=== PATIENT | male | born 1980 | race Caucasian/White ===

== ENCOUNTER 2017-12-06 09:19 | Emergency (ER) | payer OTHER ==
[~2017-12-06] VITALS: Ht 180.3 cm; Wt 111.4 kg
[~2017-12-06 09:19] MED LIST: NORCO 325 MG-51 TAB PO; VIVLODEX5 MG PO
[2017-12-06 09:26] VITALS: TEMP 98.4
[2017-12-06 09:43] LABS: HEMATOCRIT 46.2 % (42.0-52.0); HEMOGLOBIN 15.8 g/dl (13.5-18.0); MEAN CELL VOLUME 93 fl (80.0-100.0); MEAN CORPUSCULAR HEMOGLOBIN 32 pg (27.0-31.0); MEAN CORPUSCULAR HGB CONC 34 g/dl (33.0-37.0); MEAN PLATELET VOLUME 8.9 fl (7.4-10.4); PLATELET COUNT 210 K/mm3 (130-400); RED BLOOD COUNT 4.96 M/mm3 (4.20-5.60); REDCELL DISTRIBUTION WIDTH-CV 13.4 % (11.5-14.5)
[2017-12-06 09:44] LABS: ALANINE AMINOTRANSFERASE 49 U/L (21-72); ALBUMIN 4.1 gm/dL (3.5-5.0); ALKALINE PHOSPHATASE 67 U/L (50-136); ANION GAP 8 mmol/L (7-16); AST,SGOT 43 U/L (15-37); BILIRUBIN,TOTAL 0.5 mg/dL (0.0-1.0); BLOOD UREA NITROGEN 10 mg/dL (9-20); CALCIUM 9.1 mg/dL (8.4-10.2); CARBON DIOXIDE 30 mmol/L (22-30); CHLORIDE 102 mmol/L (98-107); CREATININE, serum 0.83 mg/dL (0.66-1.25); GLUCOSE 104 mg/dL (74-106); LIPASE 101 U/L (23-300); POTASSIUM 3.7 mmol/L (3.4-5.0); SODIUM 141 mmol/L (137-145); TOTAL PROTEIN 8.1 gm/dL (6.4-8.2)
[2017-12-06 09:56] LABS: TROPONIN-I < 0.012 ng/mL (0.000-0.034)
[2017-12-06 10:34] LABS: BAND 4 % (0-10); EOSINOPHIL 1 % (0-4); LYMPHOCYTE 19 % (20.0-51.0); NEUTROPHILS 67 % (42.0-75.2); PLATELET ESTIMATE NORMAL (NORMAL)
[2017-12-06] MEDS ORDERED: CARAFATE 1GM1 G PO (16:14)
[2017-12-06] MEDS ORDERED: PROTONIX 40MG T40 MG PO (16:14)
[2017-12-06 16:40] VITALS: BP 150/93; PULSE 86
== END 2017-12-06 16:53 | disposition home or self-care (01) ==
LOC: COL.ER 09:19
PROVIDERS: Emergency Medicine
DX: K21.9 Gastro-esophageal reflux disease without esophagitis (principal); R07.89 Other chest pain; F17.210 Nicotine dependence, cigarettes, uncomplicated
CPT/HCPCS: J1170

== ENCOUNTER 2018-06-14 18:06 | Emergency (ER) | payer SELFPAY ==
[~2018-06-14] VITALS: Ht 180.3 cm; Wt 104.5 kg
[~2018-06-14 18:06] MED LIST changes: +CARAFATE 1GM1 G PO; +PROTONIX 40MG T40 MG PO
[2018-06-14 18:11] VITALS: BP 168/115; TEMP 97.4
[2018-06-14] MEDS ORDERED: FLEXERIL 1010 MG/TAB PO (20:45)
[2018-06-14] MEDS ORDERED: MOTRIN 800800 MG/TAB PO (20:45)
[2018-06-14 21:05] VITALS: PULSE 80
== END 2018-06-14 21:07 | disposition home or self-care (01) ==
LOC: COL.ER 18:06
DX: S39.012A Strain of muscle, fascia and tendon of lower back, initial encounter (principal); F17.210 Nicotine dependence, cigarettes, uncomplicated; X50.0XXA Overexertion from strenuous movement or load, initial encounter
CPT/HCPCS: J1885

== ENCOUNTER 2018-06-21 10:18 | Outpatient (RCR) | payer OTHER ==
[~2018-06-21 10:18] MED LIST changes: +FLEXERIL 1010 MG/TAB PO; +MOTRIN 800800 MG/TAB PO
[2018-09-09] MEDS ORDERED: TAMIFLU 75MG75 MG PO (12:12)
== END 2018-09-19 | disposition home or self-care (01) ==
LOC: WSOH
DX: S39.012A Strain of muscle, fascia and tendon of lower back, initial encounter (principal); X50.0XXA Overexertion from strenuous movement or load, initial encounter; Y92.59 Other trade areas as the place of occurrence of the external cause; Y99.0 Civilian activity done for income or pay; Z87.891 Personal history of nicotine dependence; Z79.1 Long term (current) use of non-steroidal anti-inflammatories (NSAID); Z79.899 Other long term (current) drug therapy

== ENCOUNTER 2018-09-09 10:10 | Emergency (ER) | payer OTHER ==
[~2018-09-09] VITALS: Ht 180.3 cm; Wt 109.1 kg
[2018-09-09 10:34] LABS: BASO % 0.4 % (0.0-2.0); EOS # 0.1 (0.0-0.7); EOS % 1.5 % (0-4.0); GRAN # 5.9 (1.4-6.5); GRAN % 64.5 % (42.2-75.2); HEMOGLOBIN 15.7 g/dl (13.5-18.0); LYMPH # 1.5 (1.2-3.4); LYMPH % 16.4 % (20.0-51.0); MEAN CELL VOLUME 93 fl (80.0-100.0); MEAN CORPUSCULAR HEMOGLOBIN 32 pg (27.0-31.0); MEAN CORPUSCULAR HGB CONC 34 g/dl (33.0-37.0); MONO # 1.5 (0.1-0.6); MONO % 16.8 % (1.7-9.3); PLATELET COUNT 184 K/mm3 (130-400); RED BLOOD COUNT 4.93 M/mm3 (4.20-5.60); REDCELL DISTRIBUTION WIDTH-CV 13.2 % (11.5-14.5)
[2018-09-09 10:44] LABS: ALBUMIN 4.5 gm/dL (3.5-5.0); BILIRUBIN,TOTAL 0.4 mg/dL (0.0-1.0); CALCIUM 9.6 mg/dL (8.4-10.2); CREATININE, serum 0.9 (0.66-1.25)
[2018-09-09 12:07] VITALS: TEMP 99.8
[2018-09-09] MEDS ORDERED: TAMIFLU 75MG75 MG PO (12:12)
[2018-09-09 13:07] VITALS: BP 109/74; PULSE 93
== END 2018-09-09 13:14 | disposition home or self-care (01) ==
LOC: COL.ER 10:10
PROVIDERS: Physician Assistant
DX: B34.9 Viral infection, unspecified (principal); R07.89 Other chest pain; R06.02 Shortness of breath; I10 Essential (primary) hypertension; F17.210 Nicotine dependence, cigarettes, uncomplicated; Z98.890 Other specified postprocedural states
CPT/HCPCS: C9113; J2405; J7030

== ENCOUNTER 2018-12-31 22:04 | Emergency (ER) | payer OTHER ==
[~2018-12-31] VITALS: Ht 180.3 cm; Wt 105.5 kg
[~2018-12-31 22:04] MED LIST changes: +TAMIFLU 75MG75 MG PO
[2018-12-31 22:13] VITALS: TEMP 97.5
[2018-12-31] MEDS ORDERED: BLOOD PRESSURE (22:23)
[2018-12-31] MEDS ORDERED: NEURONTIN100 MG/CAP PO (22:23)
[2018-12-31] MEDS ORDERED: NAPROSYN 2250 MG/TAB PO (22:59)
[2018-12-31] MEDS ORDERED: NORCO 325 MG-51 TAB PO (22:59)
[2018-12-31] MEDS ORDERED: FLEXERIL 1010 MG/TAB PO (22:59)
[2018-12-31 23:31] LABS: COLLECTION METHOD CLEAN CATCH
[2019-01-01 00:01] LABS: MUCOUS Present /lpf; PH 5 (5-8); SQUAMOUS EPITHELIAL 0-2 /hpf; URINE APPEARANCE Hazy; URINE BACTERIA None Seen /hpf; URINE BILIRUBIN Negative (NEGATIVE); URINE BLOOD 3+ (NEGATIVE); URINE COLOR Yellow; URINE GLUCOSE Negative (NEGATIVE); URINE KETONE Trace (NEGATIVE); URINE LEUKOCYTE ESTERASE Negative (NEGATIVE); URINE NITRATE Negative (NEGATIVE); URINE PROTEIN(semi-quant) Negative (NEGATIVE); URINE RBC 20-50 /hpf
[2019-01-01 00:23] VITALS: BP 122/89
[2019-01-01 00:23] LABS: HEMATOCRIT 48.4 % (42.0-52.0); MEAN CELL VOLUME 96 fl (80.0-100.0); MEAN CORPUSCULAR HEMOGLOBIN 32 pg (27.0-31.0); MEAN CORPUSCULAR HGB CONC 33 g/dl (33.0-37.0); MEAN PLATELET VOLUME 9.2 fl (7.4-10.4); PLATELET COUNT 206 K/mm3 (130-400); RED BLOOD COUNT 5.04 M/mm3 (4.20-5.60); REDCELL DISTRIBUTION WIDTH-CV 13.4 % (11.5-14.5)
[2019-01-01 00:32] LABS: ALBUMIN 4.5 gm/dL (3.5-5.0); BILIRUBIN,TOTAL 0.3 mg/dL (0.0-1.0); CALCIUM 9.6 mg/dL (8.4-10.2); CREATININE, serum 1.26 (0.66-1.25); POTASSIUM 4.5 mmol/L (3.4-5.0)
[2019-01-01 01:07] LABS: BAND 3 % (0-10); LYMPHOCYTE 21 % (20.0-51.0); NEUTROPHILS 68 % (42.0-75.2); PLATELET ESTIMATE NORMAL (NORMAL)
[2019-01-01] MEDS ORDERED: CEFTIN500 MG PO (01:45)
[2019-01-01] MEDS ORDERED: ZOFRAN ODT4 MG PO (01:45)
[2019-01-01 02:15] VITALS: PULSE 59
== END 2019-01-01 02:15 | disposition home or self-care (01) ==
LOC: COL.ER 22:04
PROVIDERS: Emergency Medicine
DX: M62.830 Muscle spasm of back (principal); N13.2 Hydronephrosis with renal and ureteral calculous obstruction; M51.26 Other intervertebral disc displacement, lumbar region
CPT/HCPCS: A4216; J0696; J1170; J1885; J7030; Q9967

== ENCOUNTER 2019-04-16 18:13 | Emergency (ER) | payer OTHER ==
[~2019-04-16] VITALS: Ht 180.3 cm; Wt 109.1 kg
[~2019-04-16 18:13] MED LIST changes: +BLOOD PRESSURE; +CEFTIN500 MG PO; +NAPROSYN 2250 MG/TAB PO; +NEURONTIN100 MG/CAP PO; +ZOFRAN ODT4 MG PO
[2019-04-16] MEDS ORDERED: CEPHALEXIN500 M1 PO (19:28)
[2019-04-16 19:50] VITALS: BP 142/88; PULSE 74; TEMP 98
== END 2019-04-16 19:55 | disposition home or self-care (01) ==
LOC: COL.ER 18:13
DX: L03.011 Cellulitis of right finger (principal); I10 Essential (primary) hypertension; F17.210 Nicotine dependence, cigarettes, uncomplicated

== ENCOUNTER 2019-05-22 14:03 | Emergency (ER) | payer SELFPAY ==
[~2019-05-22] VITALS: Ht 180.3 cm; Wt 107.3 kg
[~2019-05-22 14:03] MED LIST changes: +CEPHALEXIN500 M1 PO
[2019-05-22 14:16] VITALS: TEMP 98
[2019-05-22 16:14] VITALS: BP 135/89; PULSE 88
== END 2019-05-22 16:30 | disposition home or self-care (01) ==
LOC: COL.ER 14:03
DX: S61.412A Laceration without foreign body of left hand, initial encounter (principal); F17.210 Nicotine dependence, cigarettes, uncomplicated; W20.8XXA Other cause of strike by thrown, projected or falling object, initial encounter

== ENCOUNTER → 2019-06-03 | Outpatient (CLI) | payer SELFPAY ==
[2019-06-03 11:39] VITALS: BP 137/89; PULSE 90; TEMP 97.8
== END ==
LOC: COL.ER 11:34
DX: Z48.02 Encounter for removal of sutures (principal)

== ENCOUNTER → 2019-06-08 | Outpatient (CLI) | payer SELFPAY | LOC: COL.ER 09:23 | DX: Z48.02 Encounter for removal of sutures (principal) ==

== ENCOUNTER 2019-06-12 13:16 | Emergency (ER) | payer SELFPAY ==
[~2019-06-12] VITALS: Ht 180.3 cm; Wt 104.5 kg
[2019-06-12 13:34] VITALS: BP 159/110; PULSE 77; TEMP 98.9
[2019-06-12] MEDS ORDERED: CEPHALEXIN500 M1 PO (13:57)
== END 2019-06-12 14:10 | disposition home or self-care (01) ==
LOC: COL.ER 13:16
DX: T81.49XA Infection following a procedure, other surgical site, initial encounter (principal); F17.210 Nicotine dependence, cigarettes, uncomplicated

== ENCOUNTER 2021-05-19 07:44 | Emergency (ER) | payer BC ==
[~2021-05-19] VITALS: Ht 180.3 cm; Wt 107.3 kg
[~2021-05-19 07:44] MED LIST changes: +NEXIUM 20MG20 MG PO; +PHENERGAN 25 TA25 MG PO; +TUSS PO
[2021-05-19 07:55] VITALS: TEMP 98.3
[2021-05-19 09:15] VITALS: BP 154/114; PULSE 82
== END 2021-05-19 08:50 | disposition home or self-care (01) ==
LOC: COL.ER 07:44
DX: B34.9 Viral infection, unspecified (principal); I10 Essential (primary) hypertension; E66.9 Obesity, unspecified; F17.210 Nicotine dependence, cigarettes, uncomplicated; Z68.33 Body mass index [BMI] 33.0-33.9, adult; Z20.822 Contact with and (suspected) exposure to COVID-19

== ENCOUNTER 2021-05-20 01:56 | Emergency (ER) | payer BC ==
[~2021-05-20] VITALS: Ht 180.3 cm; Wt 106.8 kg
[2021-05-20 02:01] VITALS: TEMP 99
[2021-05-20 02:37] LABS: HEMATOCRIT 45.4 % (42.0-52.0); HEMOGLOBIN 15.4 g/dl (13.5-18.0); MEAN CELL VOLUME 93 fl (80.0-100.0); MEAN CORPUSCULAR HEMOGLOBIN 32 pg (27.0-31.0); MEAN CORPUSCULAR HGB CONC 34 g/dl (33.0-37.0); MEAN PLATELET VOLUME 8.5 fl (7.4-10.4); PLATELET COUNT 183 K/mm3 (130-400); RED BLOOD COUNT 4.88 M/mm3 (4.20-5.60); REDCELL DISTRIBUTION WIDTH-CV 13.6 % (11.5-14.5)
[2021-05-20 02:55] LABS: ALANINE AMINOTRANSFERASE 27 U/L (0-55); ALBUMIN 4.1 gm/dL (3.5-5.0); ALKALINE PHOSPHATASE 63 U/L (40-150); ANION GAP 9 mmol/L (7-16); AST,SGOT 23 U/L (5-34); BILIRUBIN,TOTAL 0.5 mg/dL (0.2-1.2); BLOOD UREA NITROGEN 14 mg/dL (9-21); CALCIUM 9.3 mg/dL (8.4-10.2); CARBON DIOXIDE 27 mmol/L (22-29); CHLORIDE 102 mmol/L (98-107); CREATININE, serum 1.03 mg/dL (0.72-1.25); GLUCOSE 85 mg/dL (70-99); SODIUM 138 mmol/L (136-145); TOTAL PROTEIN 7.4 gm/dL (6.2-8.1)
[2021-05-20 03:02] LABS: TROPONIN-I < 0.010 ng/mL (0.00-0.033)
[2021-05-20 03:03] LABS: LYMPHOCYTE 19 % (20.0-51.0); NEUTROPHILS 64 % (42.0-75.2)
[2021-05-20 04:00] VITALS: BP 158/98; PULSE 80
== END 2021-05-20 04:00 | disposition home or self-care (01) ==
LOC: COL.ER 01:56
PROVIDERS: Emergency Medicine Emergency Medical Services
DX: B34.9 Viral infection, unspecified (principal); I10 Essential (primary) hypertension; Z73.0 Burn-out
CPT/HCPCS: J7030

== ENCOUNTER 2022-08-09 21:12 | Emergency (ER) | payer SELFPAY ==
[~2022-08-09] VITALS: Ht 180.3 cm; Wt 119.5 kg
[2022-08-09 21:20] VITALS: TEMP 97.9
[2022-08-09 22:12] VITALS: BP 171/115; PULSE 80
== END 2022-08-09 22:12 | disposition home or self-care (01) ==
LOC: COL.ER 21:12
DX: S60.222A Contusion of left hand, initial encounter (principal); I10 Essential (primary) hypertension; Z79.899 Other long term (current) drug therapy; W23.0XXA Caught, crushed, jammed, or pinched between moving objects, initial encounter; Y92.59 Other trade areas as the place of occurrence of the external cause; Y99.0 Civilian activity done for income or pay